=== PATIENT | female | born 1955 | race African-American/Black ===

== ENCOUNTER 2017-04-19 10:44 | Emergency (ER) | payer BC ==
[~2017-04-19] VITALS: Ht 172.7 cm; Wt 96.6 kg
[2017-04-19] MEDS ORDERED: ASPI81TA85 PO (10:56)
[2017-04-19] MEDS ORDERED: OMEP40CA2 (10:56)
[2017-04-19 11:29] LABS: BASO % 0.3 % (0.0-1.0); EOS # 0.2 K/mm3 (0.0-0.50); EOS % 2.5 % (0.0-3.0); LARGE UNSTAINED CELL # 0.1 K/mm3 (0.0-0.4); LARGE UNSTAINED CELL % 1.8 % (0.0-4.0); LYMPH # 0.7 K/mm3 (1.5-4.5); LYMPH % 9.3 % (24.0-44.0); MEAN CORPUSCULAR HEMOGLOBIN 28.3 pg (27.0-33.0); MEAN CORPUSCULAR HGB CONC 35.6 g/dl (32.0-36.5); MEAN CORPUSCULAR VOLUME 79.3 fl (80.0-96.0); MONO # 0.3 K/mm3 (0.0-0.8); NEUTROPHILS # 5.3 K/mm3 (1.8-7.7); NEUTROPHILS % 82.1 % (36.0-66.0); PLATELET COUNT, AUTOMATED 190 k/mm3 (150-450); RED CELL DISTRIBUTION WIDTH 14.1 % (11.5-14.5); WHITE BLOOD COUNT 6.5 K/mm3 (4.0-10.0)
[2017-04-19 11:41] LABS: INR 1.07
[2017-04-19 11:46] LABS: ALBUMIN 3.6 GM/DL (3.2-5.2); ALBUMIN/GLOBULIN RATIO 1.03 (1.00-1.93); ALKALINE PHOSPHATASE 81 U/L (45-117); ALT/SGPT 29 U/L (12-78); ANION GAP 9 MEQ/L (8-16); AST/SGOT 19 U/L (15-37); BILIRUBIN,DIRECT 0.2 MG/DL (0.0-0.2); BILIRUBIN,TOTAL 0.7 MG/DL (0.2-1.0); BLOOD UREA NITROGEN 11 MG/DL (7-18); CALCIUM LEVEL 8.7 MG/DL (8.8-10.2); CARBON DIOXIDE LEVEL 30 MEQ/L (21-32); CHLORIDE LEVEL 102 MEQ/L (98-107); CREATININE FOR GFR 0.89 MG/DL (0.55-1.02); GLOMERULAR FILTRATION RATE > 60.0 (>45); GLUCOSE, FASTING 94 MG/DL (80-110); POTASSIUM SERUM 3.7 MEQ/L (3.5-5.1); SODIUM LEVEL 141 MEQ/L (136-145); TOTAL PROTEIN 7.1 GM/DL (6.4-8.2)
[2017-04-19] MEDS ORDERED: NS 1,000 ML IV ONE (13:45)
[2017-04-19 15:27] VITALS: BP 149/90
[2017-04-19] MEDS ORDERED: LOMOTIL 2.5MG/0.025MG TABLET PO ONE (15:30)
[2017-04-19] MEDS ORDERED: ZOFR4TAB3 PO (15:36)
[2017-04-19] MEDS ORDERED: LOMO2.5T PO (15:37)
--- NOTE | 2017-04-19 19:35 | ECGEPIP ---
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
== END 2017-04-19 15:49 | disposition home or self-care (01) ==
LOC: M ED 11:36
DX: A08.0 Rotaviral enteritis (principal); Z85.3 Personal history of malignant neoplasm of breast; Z79.82 Long term (current) use of aspirin